=== PATIENT | female | born 1975 | race Two or more races ===

== ENCOUNTER 2023-05-31 09:04 | Emergency (ER) | payer SELFPAY ==
[~2023-05-31] VITALS: Ht 165.1 cm; Wt 97.5 kg
[2023-05-31 09:31] VITALS: BP 119/80; PULSE 91; RESP 18; TEMP 97.4; O2SAT 99
[2023-05-31] MEDS ORDERED: EPINEPHrine HCL 1 MG/1 ML AMP SC ONE (10:00)
[2023-05-31] MEDS ORDERED: methylPREDNISolone SOD SUCC 125 MG/2 ML VL IM ONE (10:00)
[2023-05-31] MEDS ORDERED: PRED20TA2 PO (10:01)
[2023-05-31] MEDS ORDERED: HYDR50CA PO (10:01)
== END 2023-05-31 10:47 | disposition home or self-care (01) ==
LOC: ER 09:04
DX: T78.40XA Allergy, unspecified, initial encounter (principal); X58.XXXA Exposure to other specified factors, initial encounter
CPT/HCPCS: 96372; 99284; J0171; J2930